=== PATIENT | female | born 1965 | race Caucasian/White ===

== ENCOUNTER 2017-09-13 08:06 | Emergency (ER) | payer MEDICAID ==
--- NOTE | 2017-09-13 08:49 | EDM.PDOC ---
ED HPI GENERAL MEDICAL PROBLEM - General Chief Complaint: Upper Extremity Injury/Pain Stated Complaint: FINGER MASHED IN DOOR Time Seen by Provider: 09/13/17 08:35 Source of Information: Reports: Patient History Limitations: Reports: No Limitations - History of Present Illness INITIAL COMMENTS - FREE TEXT/NARRATIVE: 52 yo female here after getting her L long finger caught in a car door last night. Has ecchymosis, swelling, and throbbing. Tetanus is UTD. There is blood under the nail. Onset: Sudden Onset Date: 09/12/17 Onset Time: 21:00 Duration: Hour(s):, Constant Location: Reports: Upper Extremity, Left Quality: Reports: Throbbing Severity: Moderate Improves with: Reports: None Worsens with: Reports: None Context: Reports: Trauma Associated Symptoms: Reports: No Other Symptoms Treatments MEDICAL COST CONSULTANT: Reports: Other (see below) (none) Left 3-Middle finger Pain Score (Numeric/FACES): 10 - Related Data Allergies Allergy/AdvReac Type Severity Reaction Status Date / Time No Known Allergies Allergy Verified 09/13/17 08:28 Home Meds: Home Meds Cetirizine [ZyrTEC] 10 mg PO DAILY 09/13/17 [History] Simvastatin [Zocor] 20 mg PO BEDTIME 09/13/17 [History] clonazePAM [Clonazepam] 0.5 mg PO BEDTIME 09/13/17 [History] Past Medical History Cardiovascular History: Reports: High Cholesterol OFFICE SUPERVISOR History: Reports: Endometrial Ablation Other OB/BYN History: Hot flashes Hematologic History: Reports: Other (See Below) Other Hematologic History: Lymes - Infectious Disease History Infectious Disease History: Reports: Chicken Pox, Shingles - Past Surgical History Female Surgical History: Reports: LEEP, Tubal Ligation Social & Family History - Tobacco Use Smoking Status *Q: Current Every Day Smoker Years of Tobacco use: 30 Packs/Tins Daily: 1 - Caffeine Use Caffeine Use: Reports: Coffee - Recreational Drug Use Recreational Drug Use: No Review of Systems - Review of Systems Review Of Systems: See Below Constitutional: Reports: No Symptoms Musculoskeletal: Reports: No Symptoms Skin: Reports: Bruising (distal pad of L long finger) Neurological: Reports: No Symptoms ED EXAM, GENERAL - Physical Exam Exam: See Below Exam Limited By: No Limitations General Appearance: Alert, WD/WN, No Apparent Distress Extremities: Other (L long finger swollen distally, blood under an intact nail.) . No: Limited Range of Motion, Redness Neurological: Alert, Oriented, CN II-XII Intact, Normal Cognition, No Motor/ Sensory Deficits Psychiatric: Normal Affect, Normal Mood Skin Exam: Warm, Dry, Intact, No Rash, Ecchymosis (distal pad of L long finger. Blood under nail. ) ED TRAUMA EXTREMITY PROCEDURES - Additional/Other Procedure(s) Other (Free Text) Procedure(s): Nail trephination performed with with electrocautery. Some immediate relief achieved. Course - Vital Signs Last Recorded V/S: Last Vital Signs Temp 35 C L 09/13/17 08:27 Pulse 80 09/13/17 08:27 Resp 14 09/13/17 08:27 BP 120/80 09/13/17 08:27 Pulse Ox 96 09/13/17 08:27 - Orders/Labs/Meds Orders: Active Orders 24 hr Category Date Time Status Fingers Third Digit Lt F2 [CR] Stat Exams 09/13/17 08:42 Ordered - Radiology Interpretation Free Text/Narrative:: L long finger X-ray-tuft fx Departure - Departure Time of Disposition: 09:05 Disposition: Home, Self-Care 01 Condition: Good Clinical Impression: Closed fracture of tuft of distal phalanx of finger Subungual hematoma of finger of left hand Qualifiers: Encounter type: initial encounter Qualified Code(s): S60.10XA - Contusion of unspecified finger with damage to nail, initial encounter - Discharge Information Referrals: PCP,None [Primary Care Provider] - - My Orders Last 24 Hours: My Active Orders 09/13/17 08:42 Fingers Third Digit Lt F2 [CR] Stat - Assessment/Plan Last 24 Hours: My Active Orders 09/13/17 08:42 Fingers Third Digit Lt F2 [CR] Stat
--- NOTE | 2017-09-13 09:16 | CR ---
Fingers Third Digit Lt F2 HISTORY: caught in car door FINDINGS: There is a nondisplaced fracture tuft of the distal phalanx left third finger. No other fra cture or dislocation is identified. Bony architecture is preserved. There is no joint space abnormali ty. IMPRESSION: Nondisplaced fracture tuft of distal phalanx left third finger.
== END 2017-09-13 09:20 | disposition home or self-care (01) ==
LOC: JP.ED 08:06
DX: S62.633A Displaced fracture of distal phalanx of left middle finger, initial encounter for closed fracture (principal); S60.032A Contusion of left middle finger without damage to nail, initial encounter; E78.00 Pure hypercholesterolemia, unspecified; F17.210 Nicotine dependence, cigarettes, uncomplicated; W23.0XXA Caught, crushed, jammed, or pinched between moving objects, initial encounter
CPT/HCPCS: 11740; 73140-26-F2; 73140-F2; 99283; 99283-25